=== PATIENT | male | born 1965 | race Caucasian/White ===

== ENCOUNTER 2020-06-21 21:55 | Emergency (ER) | payer BC, SELFPAY ==
--- NOTE | ~2020-06-21 | XR_ITS ---
EXAMINATION:XR_CERV2-3V_CR DATE: 06/21/2020 23:33 INDICATION: Neck pain TECHNIQUE: AP, lateral, lateral swimmers and odontoid views of the cervical spine are provided. COMPARISON: None FINDINGS: There are changes of anterior fusion from C5 through C7. Alignment is normal. The odontoid is intact. No fracture is identified. The vertebral body heights are maintained. There is mild loss o f intervertebral disc space height from C2-3 through C4-5. Prevertebral soft tissues are normal. IMPRESSION: 1. Mild cervical spondylosis and changes of spinal fusion without acute abnormality. Reviewed, dictated and finalized at location A. OGRAPHIC PROCESS WORKER IMPRESSION: 1. Mild cervical spondylosis and changes of spinal fusion without acute abnorma lity.
--- NOTE | ~2020-06-21 | XR_ITS ---
EXAMINATION: XR lumbar spine 2-3V DATE: 06/21/2020 23:33 INDICATION: Low back pain TECHNIQUE: Anteroposterior and lateral views of the lumbar spine, and cone-down lateral view of the l umbosacral junction were obtained. COMPARISON: CT, 12/19/2014 FINDINGS: There is unchanged severe loss of intervertebral disc space height at L5-S1. Mild loss of i ntervertebral disc space height is present at L4-5. The vertebral body heights and alignment are norm al. There is no fracture. Small degenerative osteophytes project from the anterior endplates of multi ple vertebral bodies. There is moderate facet osteoarthritis at L5-S1. IMPRESSION: 1. Severe lower lumbar spondylosis without acute findings or significant interval change. Reviewed, dictated and finalized at location A. CTOR OF STUDENT AID IMPRESSION: 1. Severe lower lumbar spondylosis without acute findings or significant interv al change.
[2020-06-21 22:03] VITALS: BP 136/78; PULSE 86; RESP 18; TEMP 35.8; O2SAT 100
--- NOTE | 2020-06-21 23:13 | ED.BACK ---
HPI - Back Pain/Injury General Chief Complaint: Fall Stated Complaint: glf - hit butt Time Seen by Provider: 06/21/20 22:59 Source: patient Mode of arrival: ambulatory Limitations: no limitations History of Present Illness HPI Narrative: Patient is a 55-year-old male complaining of neck, right hip and lower back pain after he slipped and fell but was able to catch himself thus preventing him from hitting the ground. Patient was able to get up and ambulate after the fall. Patient denies any head injury. Patient denies hitting any part of his body on the ground. Patient states that he has a cervical fusion surgery in the past, so he has chronic neck pain. Patient was asymptomatic prior to the fall. Quality: dull Radiation: none Exacerbating factors: movement Related Data Home Medications Medication Instructions Recorded Confirmed pen needle, diabetic 32 gauge x #10 each 03/07/19 11/19/19 Allergies Allergy/AdvReac Type Severity Reaction Status Date / Time No Known Allergies Allergy Unknown Verified 06/21/20 22:06 Review of Systems Review of Systems: All systems reviewed & are unremarkable except as noted in HPI and below Constitutional: Constitutional: Denies body ache(s), Denies chills, Denies excessive sweating, Denies fatigue, Denies fever(s), Denies headache(s), Denies lethargy, Denies malaise, Denies weakness and Denies weight loss Eyes: Eyes: Denies blurry vision, Denies change in vision and Denies loss of vision ENT: Denies dizziness, Denies ear discharge, Denies headache(s), Denies lip swelling, Denies epistaxis, Denies nasal congestion, Denies throat swelling and Denies tongue swelling Cardiovascular: Cardiovascular: Denies chest pain, Denies chest pain at rest, Denies chest pain with activity, Denies diaphoresis, Denies rapid heart rate, Denies edema, Denies irregular heart rhythm, Denies lightheadedness, Denies palpitations, Denies dyspnea and Denies dyspnea on exertion Respiratory: Respiratory: Denies chest congestion, Denies cough, Denies hemoptysis, Denies dyspnea and Denies dyspnea on exertion Gastrointestinal: Gastrointestinal: Denies abdominal pain, Denies melena, Denies hematochezia, Denies diarrhea, Denies nausea, Denies vomiting and Denies hematemesis Musculoskeletal: Musculoskeletal: Denies abnormal gait, Denies deformity, Denies joint swelling, Denies limited range of motion and Denies numbness Neurologic: Denies Abnormal speech present, Denies abnormal gait, Denies confusion, Denies dizziness, Denies headache(s), Denies focal weakness, Denies loss of vision, Denies numbness, Denies Other visual disturbances, Denies Sensory deficit (Neuro) and Denies weakness Psychiatric: Psychiatric: Denies confusion, Denies depression, Denies auditory hallucinations, Denies homicidal ideation and Denies suicidal ideation Endocrine: Endocrine: Denies cold intolerance, Denies excessive sweating, Denies fatigue, Denies heat intolerance and Denies palpitations Hematologic/Lymphatic: Hematologic/Lymphatic: Denies easy bleeding and Denies easy bruising Allergic/Immunologic: Allergic/Immunologic: Denies lip swelling, Denies throat swelling and Denies tongue swelling PMFSH Past Medical History Medical History Diabetes HLD (hyperlipidemia) Hypertension Long-term insulin use BLANCA on CPAP Smoking Wellness examination Surgical History Surgical History S/P appendectomy S/P cervical spinal fusion Family History Family History Mother Heart disease Social History Social History Smoking packs per day: 2 Smoking cigarettes per day: 40.0 Years smoked: 20 Smoking pack-years: 40.00 Smoking status: Former smoker Tobacco type: cigarettes Alcohol intake: never Substance use: never
[2020-06-21] MEDS: CYCLOBENZAPRINE HCL 10 MG TABLET PO (23:34)
[2020-06-21] MEDS: KETOROLAC 30 MG/ML VIAL (*BKC) IM (23:35)
[2020-06-22 00:05] VITALS: TEMP 35.8
[2020-06-22 00:43] VITALS: BP 129/64; PULSE 85; RESP 16; O2SAT 98
== END 2020-06-22 00:48 | disposition home or self-care (01) ==
PROVIDERS: Emergency Provider Emergency Medicine; PCP Family Medicine
DX: S16.1XXA Strain of muscle, fascia and tendon at neck level, initial encounter (principal); S39.012A Strain of muscle, fascia and tendon of lower back, initial encounter; E11.9 Type 2 diabetes mellitus without complications; E78.5 Hyperlipidemia, unspecified; I10 Essential (primary) hypertension; G47.33 Obstructive sleep apnea (adult) (pediatric); Z79.4 Long term (current) use of insulin; Z98.1 Arthrodesis status; Z87.891 Personal history of nicotine dependence; W01.0XXA Fall on same level from slipping, tripping and stumbling without subsequent striking against object, initial encounter
CPT/HCPCS: 72040; 72100; 96372; 99283; A9270; J1885

== ENCOUNTER → 2020-06-30 11:03 | Outpatient (CLI) | payer BC, SELFPAY ==
--- NOTE | ~2020-06-30 | XR_ITS ---
EXAMINATION: XR hip RT 2V w AP pelvis EXAM DATE: 06/30/2020 12:20 INDICATION: M25.551 - Pain in right hip. Patient fell x 6 days ago. Pain in posterior-lateral right h ip. Pain in right hip occasionally radiates down right leg. TECHNIQUE: Right hip frontal, 'frog leg' projections for interpretation. Frontal projection pelvis. There is no prior study for comparison. FINDINGS: There is mild symmetric bilateral hip primary osteoarthritis. No evidence of avascular nec rosis. There are no acute pelvic or right hip fractures or dislocations identified. There is no subc utaneous gas. The soft tissue is unremarkable. There are no radiopaque foreign bodies. IMPRESSION: 1. Pelvis, right hip exam without acute osseous findings. 2. Mild to moderate osteoarthritis. Reviewed, dictated and finalized at location B. ENGINEER
== END ==
PROVIDERS: PCP Family Medicine; Visit Provider Family Medicine
DX: M16.11 Unilateral primary osteoarthritis, right hip (principal)
CPT/HCPCS: 73502

== ENCOUNTER 2020-09-15 13:18 | Outpatient (CLI) | payer BC, SELFPAY ==
--- NOTE | ~2020-09-15 | MR_ITS ---
EXAMINATION: MR lumbar spine wo/w con DATE: 09/15/2020 15:31 INDICATION: Dorsalgia. Bilateral leg pain. TECHNIQUE: Magnetic resonance imaging (MRI) of the lumbar spine was performed without and with 19 mL MultiHance intravenous contrast. Sequences included sagittal T2-weighted FSE, sagittal T2-weighted FS FSE, and sagittal and axial T1-weighted FSE. Postcontrast sequences included axial T2-weighted FSE a nd axial and sagittal T1-weighted FS FSE. COMPARISON: Lumbar spine radiographs 06/21/2020 FINDINGS: There is 5 degrees dextrocurvature of thoracolumbar spine. There is 3 mm retrolisthesis of L4 on L5 and 5 mm anterolisthesis of L5 on S1. There is a chronic right L5 pars defect. There is mild chronic height loss of L5 vertebral body. There is moderately decreased disc height at L4-L5 and sev erely decreased disc height at L5-S1 with endplate remodeling. The distal spinal cord signal intensit y is normal. The conus medullaris is at T12-L1. The following disc levels are specifically discussed: L1-L2: The disc does not extend beyond the endplate margin. There is mild bilateral facet joint osteo arthritis. There is no neural foraminal stenosis. There is no central canal stenosis. L2-L3: The disc does not extend beyond the endplate margin. There is mild bilateral facet joint osteo arthritis. There is no neural foraminal stenosis. There is no central canal stenosis. L3-L4: The disc is bulging. There is mild bilateral facet joint osteoarthritis. There is mild right a nd moderate left neural foraminal stenosis. There is mild central canal stenosis. L4-L5: The disc is bulging. There is moderate bilateral facet joint osteoarthritis. There is moderate right and mild left neural foraminal stenosis. There is mild central canal stenosis. L5-S1: The disc is bulging. There is severe right and moderate left facet joint osteoarthritis. There is moderate bilateral neural foraminal stenosis. There is mild central canal stenosis. IMPRESSION: 1. Severe lower lumbar spondylosis. 2. Chronic right L5 pars defect. Reviewed, dictated and finalized at location B.
--- NOTE | ~2020-09-15 | MR_ITS ---
EXAMINATION: MR cervical spine wo/w con DATE: 09/15/2020 15:31 INDICATION: Neck pain. TECHNIQUE: Magnetic resonance imaging (MRI) of the cervical spine was performed without and with 19 m L MultiHance intravenous contrast. Sequences included sagittal and axial T2-weighted FSE, sagittal ST IR FSE, and sagittal and axial T1-weighted FSE. Postcontrast sequences included sagittal and axial T1 -weighted FS FSE. COMPARISON: Cervical spine radiographs 06/21/2020 FINDINGS: Bone alignment is normal. There are changes of anterior fusion procedure from C5 to C7 with healed interbody bone graft and anterior plate and screws. Vertebral body heights are normal. There is mildly decreased disc height at C4-C5 and C7-T1. The spinal cord signal intensity is normal. The f ollowing disc levels are specifically discussed: C2-C3: The disc does not extend beyond the endplate margin. There is no uncovertebral joint osteoarth ritis. There is mild right and severe left facet joint osteoarthritis. There is mild left neural fora divya stenosis. There is no central canal stenosis. C3-C4: The disc is bulging. There is mild bilateral uncovertebral joint osteoarthritis. There is mild bilateral facet joint osteoarthritis. There is mild bilateral neural foraminal stenosis. There is mi ld central canal stenosis. C4-C5: The disc is bulging. There is moderate bilateral uncovertebral joint osteoarthritis. There is moderate bilateral facet joint osteoarthritis. There is mild bilateral neural foraminal stenosis. The re is mild central canal stenosis with ventral indentation of the spinal cord. C5-C6: / There is no uncovertebral joint osteoarthritis. There is mild left facet joint hypertrophy. There is no neural foraminal stenosis. There is no central canal stenosis. C6-C7: There is no uncovertebral joint osteoarthritis. There is mild right facet joint hypertrophy. T here is no neural foraminal stenosis. There is no central canal stenosis. C7-T1: There is a central protrusion. There is no uncovertebral joint osteoarthritis. There is modera te right and mild left facet joint osteoarthritis. There is mild right neural foraminal stenosis. The re is mild central canal stenosis. IMPRESSION: 1. Mild cervical spondylosis. 2. Anterior fusion procedure from C5 to C7. Reviewed, dictated and finalized at location B.
[2020-09-15 14:31] LABS: Estimated Glomerular Filt Rate > 60
== END 2020-09-15 13:19 | disposition home or self-care (01) ==
PROVIDERS: PCP Family Medicine; Visit Provider Physician Assistant
DX: M47.896 Other spondylosis, lumbar region (principal); M47.892 Other spondylosis, cervical region; Z98.1 Arthrodesis status
CPT/HCPCS: 72156; 72158; A9577

== ENCOUNTER 2020-10-27 12:07 | Emergency (ER) | payer BC, SELFPAY ==
[2020-10-27] VITALS (15 sets, daily range): BP systolic 120–145; BP diastolic 67–86; PULSE 60–93; RESP 9–21; TEMP 36.5; O2SAT 94–100
--- NOTE | ~2020-10-27 | CT_ITS ---
EXAMINATION: CTA brain carotid DATE: 10/27/2020 14:53 INDICATION: Headache. Dizziness. TECHNIQUE: Computed tomographic angiography (CTA) of the head was performed without and with 100 mL O mnipaque-350 intravenous contrast. CTA of the neck was performed with intravenous contrast. Automated exposure control and iterative reconstruction technique were employed. The dose-length product was 1 746.53 mGy-cm. Maximum intensity projection and volume rendered 3D-reconstructions were created by diane potter technologist on a separate workstation. COMPARISON: None. FINDINGS: HEAD CTA: There is no intracranial hemorrhage, acute infarction, or abnormal intracranial mass lesion . The ventricles are normal in size. The orbits are normal. There is mild mucosal thickening in the p aranasal sinuses. The mastoid air cells are normal. Left vertebral artery is dominant. There is no si gnificant stenosis of basilar artery or the posterior cerebral arteries. The posterior communicating arteries are normal. There are infundibula at the origins of the posterior communicating arteries. Th ere is no significant stenosis of the intracranial internal carotid arteries or anterior or middle ce rebral arteries. Anterior communicating artery is normal. There is no aneurysm. NECK CTA: There is mild emphysema. There are no pathologically enlarged lymph nodes. There is no sign ificant stenosis of the vertebral arteries. There is no visible plaque in the proximal internal carot id arteries. There is 0% stenosis of the proximal right internal carotid artery relative to normal di stal artery lumen diameter (NASCET criteria). There is 0% stenosis of the proximal left internal lima tid artery relative to normal distal artery lumen diameter. There are changes of anterior fusion proc edure from C5 to C7. There is moderate cervical spondylosis. IMPRESSION: 1. Normal brain. No aneurysm or significant intracranial arterial stenosis. 2. 0% stenosis of the proximal internal carotid arteries relative to normal distal artery lumen diam eters (NASCET criteria). Reviewed, dictated and finalized at location A. IMPRESSION: 1. Normal brain. No aneurysm or significant intracranial arterial stenosis. 2. 0% stenosis of the proximal internal carotid arteries relative to normal di stal artery lumen diameters (NASCET criteria).
--- NOTE | 2020-10-27 13:18 | ED.DIZZY ---
HPI - Dizziness General Chief Complaint: Dizziness Stated Complaint: dizziness, off balance Time Seen by Provider: 10/27/20 13:17 Source: patient Mode of arrival: ambulatory Limitations: no limitations History of Present Illness HPI Narrative: Patient is a 55-year-old male who presents for evaluation of intermittent dizziness. Patient reports symptoms have been ongoing over the past 24 hours. They began last night, noticed it with gentle head movement and walking. Described as a slight dizzy sensation without spinning sensation. Denies nausea or vomiting. No unsteadiness on his feet. Patient has been ambulatory. He denies focal weakness or numbness in his upper or lower extremities. No severe headache pain or vision changes. No history of this in the past. No recent illnesses or medication changes. No chest pain or shortness of breath. Related Data Allergies Allergy/AdvReac Type Severity Reaction Status Date / Time No Known Allergies Allergy Verified 10/27/20 13:17 Review of Systems Review of Systems: Narrative: CONSTITUTIONAL: Denies fever, chills, or sweats. EYES: Denies visual changes, redness, or discharge. ENT: Denies rhinorrhea, congestion, sore throat, or otalgia. CARDIOVASCULAR: Denies chest pain, palpitations, or edema. RESPIRATORY: Denies cough or dyspnea. GASTROINTESTINAL: Denies abdominal pain, nausea, vomiting, or diarrhea. GENITOURINARY: Denies dysuria or hematuria. SKIN: Denies rash or itching. MUSCULOSKELETAL: Denies back pain, joint pain, or myalgia. NEUROLOGIC: Denies headache, numbness, or weakness. Reports intermittent dizziness. [facility] Family History Family History Mother Family history of coronary artery disease Father Family history of thyroid disease Family history of diabetes mellitus in first degree relative Family history of hearing loss Social History Social History Smoking status: Heavy tobacco smoker Smoking end date: 04/23/16 Alcohol intake: never Substance use type: marijuana Gender identity (if verbalized by the patient): Male Exam Narrative: Exam Narrative: GENERAL: Awake, alert, conversant HEAD: Normocephalic, atraumatic. EYES: 2 +PERRLA and EOMI. ENT: Nares clear, no rhinorrhea or epistaxis. Mucous membranes moist. NECK: Supple. CHEST: No respiratory distress, breathing even and non labored HEART: Regular rate, sinus rhythm ABDOMEN:Non distended, non tender EXTREMITIES: Normal range of motion. No edema. SKIN: Warm, dry, no rash. NEURO:No focal deficits. Alert and oriented x3. Finger to nose intact bilaterally. EOMs intact without nystagmus. No facial droop/asymmetry noted bilaterally. Grimace intact. Intact sensation in face. Hearing intact bilaterally. Shoulder shrug intact. Strength 5/5 bilateral upper extremities. Strength 5/5 bilateral lower extremities. Reflexes 2+ patellar. Heel to gifford intact bilaterally. Ambulatory with a narrow based steady gait. Course Vital Signs Vital signs: Vital Signs Temperature 36.5 C 10/27/20 12:24 Pulse Rate 93 10/27/20 12:24 Respiratory Rate 15 10/27/20 12:24 Blood Pressure 130/86 10/27/20 12:24 Pulse Oximetry 100 10/27/20 12:24 Temperature 36.5 C 10/27/20 12:24 Pulse Rate 67 10/27/20 15:00 Respiratory Rate 10 L 10/27/20 15:00 Blood Pressure 130/73 10/27/20 14:31 Pulse Oximetry 98 10/27/20 15:00 MDM - Dizziness MDM Narrative Medical decision making narrative: The patient was evaluated for dizziness. Based on neurological assessment and clinical symptoms, patient's vertigo is felt to be likely peripheral in origin. Patient has reassuring neurological exam, is ambulatory with a narrow base, steady gait which does not exacerbate symptoms. NIH stroke scale score of 0. On exam, there is no diplopia, dysarthria or dysphagia. Patient's gait is stable and there are no cerebral deficit
--- NOTE | 2020-10-27 13:19 | ECG_ITS ---
Measurements Intervals [place] Rate: 66 P: 62 CO: 153 QRS: 18 QRSD: 97 T: 55 QT: 404 QTc: 424 Interpretive Statements SINUS RHYTHM WITH SINUS ARRHYTHMIA INCOMPLETE RIGHT BUNDLE BRANCH BLOCK BASELINE ARTIFACT- II, III, AVF, V1, V3-V6 BORDERLINE ECG Electronically Signed On 10-27-2020 16:23:45 CDT by Ton Cardenas D.O.
[2020-10-27] MEDS: ONDANSETRON INJ 4 MG/2 ML VIAL IV PUSH (13:38)
[2020-10-27] MEDS: SODIUM CHLORIDE 0.9% IV 1,000 ML 999 ML IV CONT (13:38)
[2020-10-27] MEDS: MECLIZINE HCL 25 MG TABLET PO (13:39)
[2020-10-27 13:41] LABS: Basophils Percent Auto 0.6 % (0.2-1.2); Eosinophils Absolute Auto 0.1 K/mm3 (0-0.3); Eosinophils Percent Auto 1.2 % (0-4.4); Hematocrit 41.7 % (42.0-52.0); Hemoglobin 14.5 g/dL (14.0-18.0); Immature Granulocyte Absolute 0.03 K/mm3 (0.00-0.031); Immature Granulocyte Percent A 0.4 % (0-0.5); Lymphocytes Absolute Auto 1.88 K/mm3 (0.9-3.2); Lymphocytes Percent Auto 27.1 % (18.3-44.2); Mean Corpuscular HGB Conc 34.8 g/dl (32-36); Mean Corpuscular Hemoglobin 29.7 pg (26-34); Mean Corpuscular Volume 85.5 fl (80-100); Mean Platelet Volume 10.9 fl (7.4-10.4); Monocytes Absolute Auto 0.6 K/mm3 (0.1-0.6); Monocytes Percent Auto 7.9 % (2.6-8.5); Neutrophils Absolute Auto 4.4 K/mm3 (1.3-6.7); Neutrophils Percent Auto 62.8 % (45.5-73.1); Platelet Count Result 194 k/mm3 (150-375); Red Blood Count 4.88 M/mm3 (4.6-6.20); Red Cell Distribution Width 12.8 % (11.5-14.5); White Blood Count 6.9 K/mm3 (4.5-10.0)
[2020-10-27 13:51] LABS: Anion Gap 7 mmol/L (8-16); Blood Urea Nitrogen 14 mg/dL (9-20); Calcium 9.1 mg/dL (8.4-10.2); Carbon Dioxide 27 mmol/L (22-30); Chloride 102 mmol/L (98-107); Estimated CRCL calculation 100 ml/min; Estimated Glomerular Filt Rate > 60; Glucose 179 mg/dL (75-110); Potassium 4.2 mmol/L (3.4-5.0); Sodium 136 mmol/L (137-145)
[2020-10-27 14:03] LABS: Troponin I < 0.012 ng/mL (0.000-0.034)
== END 2020-10-27 16:14 | disposition home or self-care (01) ==
PROVIDERS: Emergency Provider Emergency Medicine; PCP Family Medicine
DX: H81.10 Benign paroxysmal vertigo, unspecified ear (principal); Z87.891 Personal history of nicotine dependence; I45.10 Unspecified right bundle-branch block
CPT/HCPCS: 36415; 70496; 70498; 80048; 84484; 85025; 93005; 96361; 96374; 99284; A9270; J2405; J7030; Q9967

== ENCOUNTER 2021-09-12 10:26 | Outpatient (CLI) | payer BC, SELFPAY ==
--- NOTE | ~2021-09-12 | XR_ITS ---
XR hip RT min 2V 09/12/2021 10:50 Indication: Right hip pain Procedure: 2 views right hip Comparison: No prior studies for comparison. Findings: Moderate osteoarthritis of the right hip. No fracture, subluxation or dislocation. Surround ing osseous structures within normal limits. Sacral foramen are symmetric. Impression: 1: Moderate osteoarthritis of the right hip. Reviewed, dictated and finalized at location A. Impression: 1: Moderate osteoarthritis of the right hip.
--- NOTE | ~2021-09-12 | XR_ITS ---
XR hip LT min 2V 09/12/2021 10:51 Indication: Left hip pain Procedure: 2 views left hip Comparison: No prior studies for comparison. Findings: Mild osteoarthritis of the left hip no fracture, subluxation or dislocation. No significant soft tissue abnormality. No foreign bodies. There is lower lumbar spondylosis. Impression: 1: Mild osteoarthritis of the left hip. Reviewed, dictated and finalized at location A. Impression: 1: Mild osteoarthritis of the left hip.
== END 2021-09-12 10:27 | disposition home or self-care (01) ==
PROVIDERS: PCP Family Medicine; Visit Provider Nurse Practitioner Family
DX: M16.0 Bilateral primary osteoarthritis of hip (principal)
CPT/HCPCS: 73502

== ENCOUNTER 2021-09-20 23:30 | Emergency (ER) | payer OTHER, BC, SELFPAY ==
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
[2021-09-20 23:38] VITALS: BP 127/78; PULSE 97; RESP 18; TEMP 36.8; O2SAT 99
[2021-09-21] MEDS: KETOROLAC 30 MG/ML VIAL (*BKC) IM (01:22)
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
[2021-09-21 02:29] VITALS: BP 129/84; PULSE 63; RESP 18; O2SAT 97
== END 2021-09-21 02:31 | disposition home or self-care (01) ==
PROVIDERS: Emergency Provider Emergency Medicine; PCP Family Medicine
DX: S29.012A Strain of muscle and tendon of back wall of thorax, initial encounter (principal); E11.9 Type 2 diabetes mellitus without complications; E78.5 Hyperlipidemia, unspecified; I10 Essential (primary) hypertension; Z79.4 Long term (current) use of insulin; Z87.891 Personal history of nicotine dependence; V43.52XA Car driver injured in collision with other type car in traffic accident, initial encounter
CPT/HCPCS: 72125; 96374; 99284; J1885

== ENCOUNTER 2022-05-09 12:59 | Outpatient (CLI) | payer BC, SELFPAY ==
--- NOTE | ~2022-05-09 | MR_ITS ---
EXAMINATION: MRA brain wo con DATE: 05/09/2022 14:37 INDICATION: Paresthesias. Left face and body numbness. Neck pain. TECHNIQUE: Magnetic resonance angiography (MRA) of the brain was performed without intravenous contra st with T1-weighted SPGR by the 3D [id number] technique. Maximum intensity projection 3D-reconstr uctions were obtained. COMPARISON: Head CT 10/27/2020 FINDINGS: Left vertebral artery is dominant. There is no significant stenosis of basilar artery or the posterio r cerebral arteries. There is no significant stenosis of the intracranial internal carotid arteries o r anterior or middle cerebral arteries. Anterior communicating artery is normal. The posterior commun icating arteries are normal. There is no aneurysm. IMPRESSION: 1. Normal head MRA. Reviewed, dictated and finalized at location A. 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 Normal head MRA.
--- NOTE | ~2022-05-09 | MR_ITS ---
EXAMINATION: MR brain/brain stem wo/w con DATE: 05/09/2022 14:37 INDICATION: Paresthesias. Left face and body numbness. Neck pain. TECHNIQUE: Magnetic resonance imaging (MRI) of the brain and brainstem was performed without and with 18 mL MultiHance intravenous contrast. COMPARISON: Head CT 11/16/2020 FINDINGS: There is no intracranial hemorrhage, acute infarction, or abnormal intracranial mass lesion . There are scattered areas of nonspecific increased T2-weighted signal intensity in the cerebral whi te matter. The ventricles are normal in size. There is mild mucosal thickening in frontal sinus. The orbits are normal. The mastoid air cells are normal. IMPRESSION: 1. Mild nonspecific cerebral white matter disease, which likely represents chronic small vessel ische sasha disease. Reviewed, dictated and finalized at location A. CONTRACTOR BUYER IMPRESSION: 1. Mild nonspecific cerebral white matter disease, which likely represents group care worker jalen small vessel ischemic disease.
--- NOTE | ~2022-05-09 | MR_ITS ---
EXAMINATION: MR cervical spine wo/w con DATE: 05/09/2022 14:37 INDICATION: Paresthesias. Left face and body numbness. Neck pain. TECHNIQUE: Magnetic resonance imaging (MRI) of the cervical spine was performed without and with 18 m L MultiHance intravenous contrast. COMPARISON: Cervical spine MRI 09/15/2020 FINDINGS: Bone alignment is normal. There are changes of anterior fusion procedure from C5 to C7 with healed interbody bone graft and anterior plate and screws. Vertebral body heights are normal. There is moderately decreased disc height at C4-C5 and mildly decreased disc height at C7-T1. The spinal co rd signal intensity is normal. The following disc levels are specifically discussed: C2-C3: The disc does not extend beyond the endplate margin. There is no uncovertebral joint osteoarth ritis. There is severe left facet joint osteoarthritis. There is mild left neural foraminal stenosis. There is no central canal stenosis. C3-C4: The disc is bulging. There is moderate bilateral uncovertebral joint osteoarthritis. There is severe right and moderate left facet joint osteoarthritis. There is mild bilateral neural foraminal s tenosis. There is mild central canal stenosis with ventral indentation of the spinal cord. C4-C5: The disc is bulging. There is moderate bilateral uncovertebral joint osteoarthritis. There is moderate right and mild left facet joint osteoarthritis. There is moderate bilateral neural foraminal stenosis. There is moderate central canal stenosis with ventral and dorsal indentation of spinal cor d. C5-C6: There is no uncovertebral joint hypertrophy. There is mild bilateral facet joint hypertrophy. There is no neural foraminal stenosis. There is no central canal stenosis. C6-C7: There is mild bilateral uncovertebral joint hypertrophy. There is mild bilateral facet joint h ypertrophy. There is mild right neural foraminal stenosis. There is mild central canal stenosis. C7-T1: There is a central extrusion. There is no uncovertebral joint osteoarthritis. There is severe bilateral facet joint osteoarthritis. There is mild right neural foraminal stenosis. There is mild ce ntral canal stenosis. IMPRESSION: 1. Moderate cervical spondylosis, stable from 09/15/2020. 2. Anterior fusion procedure from C5 to C7. Reviewed, dictated and finalized at location A. TENDER
== END 2022-05-09 13:00 ==
PROVIDERS: PCP Family Medicine; Visit Provider Student in an Organized Health Care Education/Training Program
DX: R20.2 Paresthesia of skin (principal); M47.892 Other spondylosis, cervical region; Z98.1 Arthrodesis status; R93.0 Abnormal findings on diagnostic imaging of skull and head, not elsewhere classified
CPT/HCPCS: 70544; 70553; 72156; A9577

== ENCOUNTER 2023-11-21 06:46 | Outpatient (CLI) | payer BC, SELFPAY ==
--- NOTE | ~2023-11-21 | MR_ITS ---
EXAMINATION: MR lumbar spine wo con DATE: 11/21/2023 07:31 INDICATION: Lumbago. TECHNIQUE: Magnetic resonance imaging (MRI) of the lumbar spine was performed without intravenous con trast. Sequences included sagittal T2-weighted FSE, sagittal T2-weighted FS FSE, sagittal T1-weighted FSE, and axial T2-weighted FSE. COMPARISON: None FINDINGS: There is 6 degrees dextrocurvature of thoracolumbar spine. There is a chronic right L5 pars defect. There is 5 mm retrolisthesis of L4 on L5 and 5 mm anterolisthesis of L5 on S1. There is mild chronic height loss of L5 vertebral body posteriorly. There is moderately decreased disc height at L 4-L5 and severely decreased disc height at L5-S1. The distal spinal cord signal intensity is normal. The conus medullaris is at L1. The following disc levels are specifically discussed: L1-L2: The disc does not extend beyond the endplate margin. There is mild bilateral facet joint osteo arthritis. There is no neural foraminal stenosis. There is no central canal stenosis. L2-L3: The disc does not extend beyond the endplate margin. There is mild bilateral facet joint osteo arthritis. There is no neural foraminal stenosis. There is no central canal stenosis. L3-L4: The disc is bulging and has an annular fissure. There is severe bilateral facet joint osteoart hritis. There is mild right and moderate left neural foraminal stenosis. There is mild central canal stenosis. L4-L5: The disc is bulging and has an annular fissure. There is severe right and moderate left facet joint osteoarthritis. There is moderate right and mild left neural foraminal stenosis. There is mild central canal stenosis. L5-S1: The disc is bulging and has an annular fissure. There is severe bilateral facet joint osteoart hritis. There is moderate bilateral neural foraminal stenosis. There is mild central canal stenosis. IMPRESSION: 1. Chronic right L5 pars defect. 2. Severe lower lumbar spondylosis. Reviewed, dictated and finalized at location A.
== END 2023-11-21 06:47 | disposition home or self-care (01) ==
PROVIDERS: PCP Family Medicine; Visit Provider Nurse Practitioner Family
DX: M43.06 Spondylolysis, lumbar region (principal)
CPT/HCPCS: 72148